=== PATIENT | male | born 1980 | race Caucasian/White ===

== ENCOUNTER 2019-01-23 07:52 | Emergency (ER) | payer OTHER ==
[~2019-01-23] VITALS: Ht 175.3 cm; Wt 84.1 kg
[2019-01-23] MEDS ORDERED: NORCO 325 MG-7.1 TAB PO (08:35)
[2019-01-23] MEDS ORDERED: FLEXERIL 1010 MG/TAB PO ×3 (08:35→09:07)
[2019-01-23] MEDS ORDERED: MEDROL 4MG DOSPA4 MG PO ×3 (08:39→09:07)
[2019-01-23 09:20] VITALS: BP 127/88; PULSE 69; TEMP 97.7
== END 2019-01-23 09:20 | disposition home or self-care (01) ==
LOC: COL.ER 07:52
DX: S39.012A Strain of muscle, fascia and tendon of lower back, initial encounter (principal); Z87.891 Personal history of nicotine dependence; X50.0XXA Overexertion from strenuous movement or load, initial encounter
CPT/HCPCS: J1885